=== PATIENT | male | born 1965 | race Two or more races ===

== ENCOUNTER 2021-06-29 02:06 | Inpatient (IN) | payer BC, OTHER ==
[~2021-06-29] VITALS: Ht 170.2 cm; Wt 89.2 kg
[2021-06-29 03:45] LABS: Basophils # (auto) 0 10 ^3/uL (0-0.2); Basophils % (auto) 0.5 % (0.0-2.0); Eosinophils # (auto) 0.2 10 ^3/uL (0-0.8); Eosinophils % (auto) 2.8 % (0.0-7.0); Hematocrit 47.5 % (41.0-53.0); Hemoglobin 16.5 g/dL (13.5-17.5); Lymphocytes # (auto) 2.4 10 ^3/uL (0.4-5.4); Lymphocytes % (auto) 32.5 % (10.0-50.0); Mean Corpuscular Hemoglobin 30.6 pg (28.0-32.0); Mean Corpuscular Hgb Conc. 34.8 g/dL (32.0-36.0); Mean Corpuscular Volume 88.1 fL (80.0-100.0); Monocytes # (auto) 0.5 10 ^3/uL (0-1.3); Monocytes % (auto) 6.3 % (0.0-12.0); Neutrophils # (auto) 4.3 10 ^3/uL (1.6-8.6); Neutrophils % (auto) 57.9 % (37.0-80.0); Nucleated Red Blood Cells % 0.2 %; Red Blood Cells 5.39 10^6/uL (4.5-5.90); Red Cell Distribution Width 13.4 % (11.8-14.3); White Blood Cell 7.4 10^3/uL (4.4-10.8)
[2021-06-29 03:59] LABS: Albumin 4.3 g/dL (3.4-5.0); Calcium 9.1 mg/dL (8.5-10.1); Magnesium 2.7 mg/dL (1.6-2.6)
[2021-06-29 04:01] LABS: BUN/Creatinine Ratio 15.5
[2021-06-29 04:06] LABS: Bilirubin, Total 0.9 mg/dL (0.2-1.0); Total Protein 8.5 g/dL (6.4-8.2)
[2021-06-29 04:46] LABS: INR 1.05 (0.9-1.15); Partial Thromboplastin Time 30.1 sec (23.6-33.0)
[2021-06-29] MEDS ORDERED: ASPirin 325 MG TAB PO ONE (05:30)
[2021-06-29] MEDS ORDERED: NITROGLYCERIN 0.4 MG SL TAB SL PRN (08:45)
[2021-06-29] MEDS ORDERED: MORPHINE SULFATE INJECTION 2 MG/ML SYRG IV PRN (08:45)
[2021-06-29] MEDS ORDERED: DEXTROSE (50%) 50ML SYRG IV PRN (09:15)
[2021-06-29] MEDS ORDERED: LACTULOSE 20Gm/30ML SOLN PO PRN (09:15)
[2021-06-29] MEDS ORDERED: PROMETHAZINE HCL 25 MG/ML 1ML IV PRN (09:15)
[2021-06-29] MEDS ORDERED: ACETAMINOPHEN 500 MG TAB PO PRN (09:15)
[2021-06-29] MEDS ORDERED: TEMAZEPAM 15 MG CAP PO PRN (09:15)
[2021-06-29] MEDS ORDERED: traMADol HCL 50 MG TAB PO PRN (09:15)
[2021-06-29] MEDS ORDERED: ENOXAPARIN SOD 40 MG/0.4 ML SYRINGE SC SCH (10:00)
[2021-06-29] MEDS: ASPirin 81 mg TAB PO SCH (10:00)
[2021-06-29] MEDS: NITROGLYCERIN 0.2MG/HR TOPICAL PATCH TD SCH (10:52)
[2021-06-29] MEDS: ENOXAPARIN SOD 80 MG/0.8ML SYRINGE SC SCH ×2 (10:52→22:10)
[2021-06-29 12:03] LABS: Cholesterol 176 mg/dL (< 200); HDL Cholesterol 39 mg/dL (40-59); LDL Cholesterol 116 mg/dL (< 100); Triglycerides 151 mg/dL (< 150)
[2021-06-29] MEDS: ACCU-CHEK COMFORT CURVE STRIP VI SCH ×3 (12:15→22:00)
[2021-06-29 16:48] LABS: Alcohol, Urine < 3.0 mg/dL (0-10); Amphetamine Screen, Urine NEGATIVE (NEGATIVE); Barbiturate Scree,Urine NEGATIVE (NEGATIVE); Benzodiazephine Screen, Urine NEGATIVE (NEGATIVE); Cannabinoid Screen, Urine NEGATIVE (NEGATIVE); Cocaine Screen, Urine NEGATIVE (NEGATIVE); Opiate Scree,Urine NEGATIVE (NEGATIVE); Phencyclidine Screen, Urine NEGATIVE (NEGATIVE)
[2021-06-29] MEDS: ATORVASTATIN 20 MG TAB PO SCH (22:10)
[2021-06-30] MEDS: ACCU-CHEK COMFORT CURVE STRIP VI SCH ×4 (06:17→22:23)
[2021-06-30 06:47] LABS: Cholesterol 163 mg/dL (< 200); HDL Cholesterol 39 mg/dL (40-59); LDL Cholesterol 111 mg/dL (< 100); Triglycerides 144 mg/dL (< 150)
[2021-06-30] MEDS: ASPirin 81 mg TAB PO SCH (09:10)
[2021-06-30] MEDS: ENOXAPARIN SOD 80 MG/0.8ML SYRINGE SC SCH ×2 (09:10→22:24)
[2021-06-30] MEDS: NITROGLYCERIN 0.2MG/HR TOPICAL PATCH TD SCH (09:31)
[2021-06-30] MEDS ORDERED: IODIXANOL 320MG/ML 100ML BTL IV ONE (12:33)
[2021-06-30] MEDS ORDERED: LIDOCAINE 2%HCL (LOCAL ANESTH.) INJ 20ML MDV ONE (12:33)
[2021-06-30] MEDS ORDERED: ANGIOMAX 250 MG VIAL IV ONE (12:55)
[2021-06-30] MEDS ORDERED: VERAPAMIL 2.5MG/ML INJ 2ML VIAL IV ONE (12:56)
[2021-06-30] MEDS ORDERED: fentaNYL CITRATE 100 MCG/2 ML VL ONE (12:56)
[2021-06-30] MEDS ORDERED: HEPARIN SODIUM (PORCINE) 5000 UNITS/ML 1ML VIAL ONE (12:56)
[2021-06-30] MEDS ORDERED: SODIUM CHL 0.9% 0 ML ONE (12:56)
[2021-06-30] MEDS ORDERED: MIDAZOLAM HCL 2MG/2ML 2ml VIAL (1mg/ml) ONE (12:56)
[2021-06-30] MEDS ORDERED: LISI20TA28 PO (15:11)
[2021-06-30] MEDS ORDERED: ATOR10TA PO (15:11)
[2021-06-30] MEDS ORDERED: PNEUMOCOCCAL VACC POLYS 25 MCG/0.5 ML VIAL IM ONE (15:15)
[2021-06-30 15:22] VITALS: BP 112/71
[2021-06-30 18:26] VITALS: BP 117/72
[2021-06-30 20:00] VITALS: BP 100/64
[2021-06-30] MEDS: ATORVASTATIN 20 MG TAB PO SCH (22:24)
[2021-06-30] MEDS: SODIUM CHLOR 0.9% PF (SALINE LOCK) 10ML VIAL/SYR IV SCH (22:24)
[2021-07-01 01:00] VITALS: BP 127/70
[2021-07-01 04:51] VITALS: BP 136/89
[2021-07-01] MEDS: SODIUM CHLOR 0.9% PF (SALINE LOCK) 10ML VIAL/SYR IV SCH (06:14)
[2021-07-01] MEDS: ACCU-CHEK COMFORT CURVE STRIP VI SCH ×2 (06:14→12:09)
[2021-07-01 08:00] VITALS: BP 134/75
[2021-07-01 09:11] VITALS: BP 134/75
[2021-07-01] MEDS ORDERED: hydrALAZINE HCL 20 MG/ML VL IV PRN (09:15)
[2021-07-01] MEDS: ASPirin 81 mg TAB PO SCH (11:01)
[2021-07-01] MEDS: ENOXAPARIN SOD 80 MG/0.8ML SYRINGE SC SCH (11:02)
[2021-07-01] MEDS: NITROGLYCERIN 0.2MG/HR TOPICAL PATCH TD SCH (11:03)
[2021-07-01 12:48] VITALS: BP 127/71
[2021-07-01 13:06] VITALS: BP 127/71
== END 2021-07-01 15:15 | disposition home or self-care (01) | DRG 282 ==
LOC: ER 02:06 → TELE 08:45 → TELE-CENTR 06-30 14:54
PROVIDERS: ADMIT Internal Medicine; ATTEND Family Medicine
PROC: 4A023N7 Measurement of Cardiac Sampling and Pressure, Left Heart, Percutaneous Approach (ICD-10-PCS; principal; 2021-06-30)
PROC: B211YZZ Fluoroscopy of Multiple Coronary Arteries using Other Contrast (ICD-10-PCS; 2021-06-30)
PROC: B215YZZ Fluoroscopy of Left Heart using Other Contrast (ICD-10-PCS; 2021-06-30)
DX: I21.4 Non-ST elevation (NSTEMI) myocardial infarction (principal); R73.9 Hyperglycemia, unspecified; I10 Essential (primary) hypertension; E78.00 Pure hypercholesterolemia, unspecified; R00.1 Bradycardia, unspecified; R42 Dizziness and giddiness; I25.10 Atherosclerotic heart disease of native coronary artery without angina pectoris; Z20.822 Contact with and (suspected) exposure to COVID-19; Z80.1 Family history of malignant neoplasm of trachea, bronchus and lung; Z80.3 Family history of malignant neoplasm of breast; Z80.42 Family history of malignant neoplasm of prostate; Z80.8 Family history of malignant neoplasm of other organs or systems; Z81.8 Family history of other mental and behavioral disorders; Z82.0 Family history of epilepsy and other diseases of the nervous system; Z82.3 Family history of stroke; Z82.49 Family history of ischemic heart disease and other diseases of the circulatory system; Z82.5 Family history of asthma and other chronic lower respiratory diseases; Z82.62 Family history of osteoporosis; Z83.3 Family history of diabetes mellitus
CPT/HCPCS: 36415; 71045; 78452; 80053; 80061; 80307; 82550; 82962; 83036; 83735; 83880; 84443; 84484; 85025; 85379; 85610; 85652; 85730; 87426; 93005; 93017; 93306; 99152; G0378; J2250; Q9967

== ENCOUNTER 2021-07-05 01:23 | Inpatient (IN) | payer BC, MEDICAID, OTHER, SELFPAY ==
[~2021-07-05] VITALS: Ht 170.2 cm; Wt 85.5 kg
[~2021-07-05 01:23] MED LIST: ATOR10TA PO; LISI20TA28 PO
[2021-07-05 02:36] LABS: Basophils # (auto) 0.1 10 ^3/uL (0-0.2); Basophils % (auto) 1.1 % (0.0-2.0); Eosinophils # (auto) 0.2 10 ^3/uL (0-0.8); Eosinophils % (auto) 2.8 % (0.0-7.0); Hematocrit 45.6 % (41.0-53.0); Hemoglobin 15.4 g/dL (13.5-17.5); Lymphocytes # (auto) 2.3 10 ^3/uL (0.4-5.4); Lymphocytes % (auto) 34.4 % (10.0-50.0); Mean Corpuscular Hemoglobin 30.1 pg (28.0-32.0); Mean Corpuscular Hgb Conc. 33.7 g/dL (32.0-36.0); Mean Corpuscular Volume 89.2 fL (80.0-100.0); Monocytes # (auto) 0.5 10 ^3/uL (0-1.3); Monocytes % (auto) 7.5 % (0.0-12.0); Neutrophils # (auto) 3.6 10 ^3/uL (1.6-8.6); Neutrophils % (auto) 54.2 % (37.0-80.0); Nucleated Red Blood Cells % 0.1 %; Red Blood Cells 5.11 10^6/uL (4.5-5.90); Red Cell Distribution Width 13.4 % (11.8-14.3); White Blood Cell 6.6 10^3/uL (4.4-10.8)
[2021-07-05 02:53] LABS: Albumin 3.9 g/dL (3.4-5.0); Magnesium 2.8 mg/dL (1.6-2.6); Potassium 4.2 mmol/L (3.5-5.1)
[2021-07-05 02:55] LABS: BUN/Creatinine Ratio 16.5
[2021-07-05 03:00] LABS: Bilirubin, Total 0.7 mg/dL (0.2-1.0); Total Protein 8.1 g/dL (6.4-8.2)
[2021-07-05] MEDS ORDERED: ASPirin 81 mg TAB PO ONE (03:15)
[2021-07-05] MEDS ORDERED: ASPirin 325 MG TAB PO ONE (03:15)
[2021-07-05 03:59] LABS: INR 1.11 (0.9-1.15)
[2021-07-05] MEDS ORDERED: ACETAMINOPHEN 500 MG TAB PO PRN (07:30)
[2021-07-05] MEDS ORDERED: TEMAZEPAM 15 MG CAP PO PRN (07:30)
[2021-07-05] MEDS ORDERED: ALBUTEROL SULF HFA 90MCG INH 200DOSE IN PRN (07:30)
[2021-07-05] MEDS ORDERED: NITROGLYCERIN 0.4 MG SL TAB SL PRN (07:30)
[2021-07-05] MEDS ORDERED: MORPHINE SULFATE INJECTION 2 MG/ML SYRG IV PRN (07:30)
[2021-07-05] MEDS ORDERED: ONDANSETRON HCL 4 MG/2 ML VIAL IV PRN (07:30)
[2021-07-05 09:22] LABS: Albumin 3.6 g/dL (3.4-5.0); Calcium 8.7 mg/dL (8.5-10.1); Magnesium 2.8 mg/dL (1.6-2.6); Potassium 4.6 mmol/L (3.5-5.1)
[2021-07-05 09:26] VITALS: BP 111/67
[2021-07-05 09:26] LABS: Bilirubin, Total 0.6 mg/dL (0.2-1.0); CRP High Sensitivity 0.12 mg/dL (< 0.3); Total Protein 7.8 g/dL (6.4-8.2)
[2021-07-05] MEDS: ZINC SULFATE 220mg CAP or TAB PO SCH (10:08)
[2021-07-05] MEDS: AZITHROMYCIN 500MG/ 250ML 250 ML IV SCH (10:08)
[2021-07-05] MEDS: DexAMETHasone SOD PHOS 10MG/1ML VIAL INJ IV SCH (10:08)
[2021-07-05] MEDS: METOPROLOL TARTRATE 25 MG TAB PO SCH ×2 (10:08→22:55)
[2021-07-05] MEDS: PANTOPRAZOLE 40 MG TAB PO SCH (10:09)
[2021-07-05] MEDS: LISINOPRIL 20 MG TAB PO SCH (10:09)
[2021-07-05] MEDS: CHOLECALCIFEROL (VITD3) 2,000 UNIT CAP/TAB PO SCH (10:09)
[2021-07-05] MEDS: ASCORBIC ACID 1,000 MG TAB PO SCH (10:09)
[2021-07-05] MEDS: ENOXAPARIN SOD 40 MG/0.4 ML SYRINGE SC SCH ×2 (10:13→22:54)
[2021-07-05] MEDS ORDERED: ASPI-325 PO (10:33)
[2021-07-05] MEDS ORDERED: SIMV-8 PO (10:33)
[2021-07-05] MEDS ORDERED: MET25T PO (10:33)
[2021-07-05] MEDS ORDERED: ATORVASTATIN 20 MG TAB PO SCH (22:00)
[2021-07-06 00:29] VITALS: BP 106/63
[2021-07-06 05:25] VITALS: BP 112/78
[2021-07-06 07:17] LABS: Basophils # (auto) 0 10 ^3/uL (0-0.2); Basophils % (auto) 0.1 % (0.0-2.0); Eosinophils # (auto) 0 10 ^3/uL (0-0.8); Eosinophils % (auto) 0.1 % (0.0-7.0); Hematocrit 43.2 % (41.0-53.0); Hemoglobin 14.9 g/dL (13.5-17.5); Lymphocytes # (auto) 1.8 10 ^3/uL (0.4-5.4); Lymphocytes % (auto) 16.8 % (10.0-50.0); Mean Corpuscular Hemoglobin 30.4 pg (28.0-32.0); Mean Corpuscular Hgb Conc. 34.3 g/dL (32.0-36.0); Mean Corpuscular Volume 88.6 fL (80.0-100.0); Monocytes # (auto) 0.6 10 ^3/uL (0-1.3); Monocytes % (auto) 5.3 % (0.0-12.0); Neutrophils # (auto) 8.2 10 ^3/uL (1.6-8.6); Neutrophils % (auto) 77.7 % (37.0-80.0); Nucleated Red Blood Cells % 0.1 %; Red Blood Cells 4.88 10^6/uL (4.5-5.90); White Blood Cell 10.5 10^3/uL (4.4-10.8)
[2021-07-06 07:33] LABS: Calcium 9.1 mg/dL (8.5-10.1)
[2021-07-06 07:39] LABS: Albumin 3.7 g/dL (3.4-5.0); BUN/Creatinine Ratio 19.4; Bilirubin, Total 0.7 mg/dL (0.2-1.0); Potassium 4.7 mmol/L (3.5-5.1); Total Protein 7.1 g/dL (6.4-8.2)
[2021-07-06 08:00] VITALS: BP 136/87
[2021-07-06 09:00] VITALS: BP 132/88
[2021-07-06] MEDS ORDERED: ASPirin 81 mg TAB PO SCH (10:00)
[2021-07-06] MEDS: AZITHROMYCIN 500MG/ 250ML 250 ML IV SCH (10:19)
[2021-07-06] MEDS: ASCORBIC ACID 1,000 MG TAB PO SCH (10:20)
[2021-07-06] MEDS: DexAMETHasone SOD PHOS 10MG/1ML VIAL INJ IV SCH (10:20)
[2021-07-06] MEDS: PANTOPRAZOLE 40 MG TAB PO SCH (10:20)
[2021-07-06] MEDS: CHOLECALCIFEROL (VITD3) 2,000 UNIT CAP/TAB PO SCH (10:20)
[2021-07-06] MEDS: ZINC SULFATE 220mg CAP or TAB PO SCH (10:21)
[2021-07-06] MEDS: ENOXAPARIN SOD 40 MG/0.4 ML SYRINGE SC SCH (10:21)
[2021-07-06] MEDS: METOPROLOL TARTRATE 25 MG TAB PO SCH (10:52)
[2021-07-06] MEDS: LISINOPRIL 20 MG TAB PO SCH (10:53)
[2021-07-06 13:00] VITALS: BP 102/62
[2021-07-06] MEDS ORDERED: DOXY-111 PO (16:18)
[2021-07-06 17:40] VITALS: BP 98/61
[2021-07-06] MEDS ORDERED: INFLUENZA QUAD 2021-2022 0.5 ML SYRG IM ONE (18:24)
[2021-07-07] MEDS ORDERED: PNEUMOCOCCAL VACC POLYS 25 MCG/0.5 ML VIAL IM ONE (15:00)
[2021-07-07] MEDS ORDERED: INFLUENZA QUAD 2021-2022 0.5 ML SYRG IM ONE (15:00)
== END 2021-07-06 20:20 | disposition home or self-care (01) | DRG 177 ==
LOC: ER 01:25 → TELE 07:28 → TELE-EAST 23:07
PROVIDERS: ADMIT Nurse Practitioner; ATTEND Internal Medicine Nephrology
PROC: 3E0234Z Introduction of Serum, Toxoid and Vaccine into Muscle, Percutaneous Approach (ICD-10-PCS; principal; 2021-07-06)
PROC: 3E02340 Introduction of Influenza Vaccine into Muscle, Percutaneous Approach (ICD-10-PCS; 2021-07-06)
DX: U07.1 COVID-19 (principal); I21.A1 Myocardial infarction type 2; J12.82 Pneumonia due to coronavirus disease 2019; J44.0 Chronic obstructive pulmonary disease with (acute) lower respiratory infection; E78.5 Hyperlipidemia, unspecified; I10 Essential (primary) hypertension; Z80.1 Family history of malignant neoplasm of trachea, bronchus and lung; Z80.3 Family history of malignant neoplasm of breast; Z80.42 Family history of malignant neoplasm of prostate; Z80.8 Family history of malignant neoplasm of other organs or systems; Z81.8 Family history of other mental and behavioral disorders; Z82.0 Family history of epilepsy and other diseases of the nervous system; Z82.3 Family history of stroke; Z82.49 Family history of ischemic heart disease and other diseases of the circulatory system; Z82.5 Family history of asthma and other chronic lower respiratory diseases; Z82.62 Family history of osteoporosis; Z83.3 Family history of diabetes mellitus
CPT/HCPCS: 36415; 71045; 80053; 82728; 83735; 83880; 84484; 85025; 85379; 85610; 86141; 87081; 87426; 90686; 93005; 96365; 96375; G0378; J1100